=== PATIENT | female | born 1945 | race Caucasian/White ===

== ENCOUNTER 2022-02-21 18:22 | Inpatient (IN) | payer MEDICARE ==
[~2022-02-21] VITALS: Ht 152.4 cm; Wt 54.9 kg
--- NOTE | 2022-02-21 18:27 | NUR ---
APOLONIA CARTER TAKEN TO BED 10
[2022-02-21 18:36] VITALS: BP 142/88
--- NOTE | 2022-02-21 18:46 | NUR ---
BIBA FROM HOME C/O LOW BLOOD SUGAR, PER EMS BS ON SCENE LOW (BELOW 30), GCS30, GIVEN D10 AND NOW PT IS VERBALLY RESPONSIVE, ALERT AND AWAKE, GCS15. 2X EPISODE OF VOMITING. CHANGED INTO A GOWN AND PLACED ON THE PATIENT FINANCIAL SERVICES SPECIALIST. BS AT BEDSIDE 101, ERMD MADE AWARE. DENIES ANY ABD PAIN/DIARRHEA NKA PMH: MS, DM, HDL, HTN
[2022-02-21] MEDS ORDERED: ONDANSETRON 4 MG/2 ML VIAL IVP ONE (18:50)
[2022-02-21 18:58] LABS: BASOPHILS # (AUTO) 0.1 K/uL (0.00-0.22); BASOPHILS % (AUTO) 1.1 % (0.0-2.0); EOSINOPHILS # (AUTO) 0.1 K/uL (0-0.4); EOSINOPHILS % (AUTO) 1.2 % (0.0-4.0); HEMATOCRIT 34.8 % (36-48); HEMOGLOBIN 11.7 g/dL (12.0-16.0); LYMPHOCYTES # (AUTO) 2.2 K/uL (2.5-16.5); MEAN CORPUSCULAR HEMOGLOBIN 30 pg (27-31); MEAN CORPUSCULAR HGB CONC 34 g/dL (33-37); MEAN CORPUSCULAR VOLUME 89.4 fL (80-94); MONOCYTES # (AUTO) 0.6 K/uL (0.8-1.0); MONOCYTES % (AUTO) 7.5 % (1.7-9.3); NEUTROPHILS # (AUTO) 4.7 K/uL (1.8-7.7); NEUTROPHILS % (AUTO) 61.2 % (42.2-75.2); PLATELET COUNT (AUTO) 286 K/uL (140-450); WHITE BLOOD COUNT (AUTO) 7.7 K/uL (4.8-10.8)
--- NOTE | 2022-02-21 19:05 | NUR ---
GIVEN 2 APPLE JUICE BOXES PER ERMD, STATED TO RECHECK BLOOD SUGAR AFTER JUICE.
--- NOTE | 2022-02-21 19:18 | NUR ---
Pt report given to TOO BROWN. Transfer of care at this time.
[2022-02-21 19:21] LABS: ALBUMIN 3.3 g/dL (3.4-5.0); ANION GAP 14.5 (8-16); ASPARTATE AMINOTRANSFERASE 21 U/L (15-37); CARBON DIOXIDE 27.5 mmol/L (21-32); CHLORIDE 102 mmol/L (98-107); CREATININE 0.7 mg/dL (0.6-1.3); SODIUM SERUM 140 mmol/L (136-145); TOTAL BILIRUBIN 0.2 mg/dL (0.0-1.0); UREA NITROGEN, BLOOD 12 mg/dL (7-18)
[2022-02-21 19:29] LABS: GLUCOSE 25 mg/dL (74-106)
--- NOTE | 2022-02-21 20:00 | NUR ---
BS 49. ER NOTIFIED. 2 JUICES AND SANDWICH PROVIDED.
[2022-02-21] MEDS ORDERED: DEXTROSE 10% 250 ML IV SCH (20:05)
--- NOTE | 2022-02-21 20:12 | NUR ---
DAUGHTER KULDIP BENITEZ OR SON IN LAW [facility] [phone] OR [phone]
[2022-02-21 20:46] LABS: APPEARANCE,URINE CLEAR (CLEAR); BILIRUBIN,URINE NEGATIVE (NEGATIVE); BLOOD, URINE NEGATIVE (NEGATIVE); COLOR,URINE YELLOW (YELLOW); LEUKOCYTE ESTERASE ,URINE 1+ (NEGATIVE); NITRITE, URINE NEGATIVE (NEGATIVE); UGLUCOSE NEGATIVE (NEGATIVE)
[2022-02-21 20:51] LABS: RBC,URINE 0-5 /HPF (0-5)
[2022-02-21] MEDS ORDERED: ATOR40TA PO (20:54)
[2022-02-21] MEDS ORDERED: BEN10 PO (20:54)
[2022-02-21] MEDS ORDERED: PANT40EC PO (20:57)
[2022-02-21] MEDS ORDERED: CYCL-711 PO (20:57)
[2022-02-21] MEDS ORDERED: GLIM2TAB PO (20:57)
[2022-02-21] MEDS ORDERED: METF-346 PO (20:57)
[2022-02-21] MEDS ORDERED: DEXTROSE 10% 1,000 ML IV ONE (21:06)
--- NOTE | 2022-02-21 21:14 | NUR ---
D10 1L PULLED FROM ICU, NO 250 BAGS AVAILABLE
[2022-02-21] MEDS ORDERED: cefTRIAXone 1,000 MG VIAL ONE (21:17)
--- NOTE | 2022-02-21 22:25 | NUR ---
ER MADE AWARE OF CRITICAL LACTIC RESULT OF 5.8
[2022-02-21] MEDS ORDERED: ACETAMINOPHEN 325 MG TAB PO PRN (23:05)
[2022-02-21] MEDS ORDERED: ONDANSETRON 4 MG/2 ML VIAL IVP PRN (23:05)
[2022-02-21] MEDS: DEXT 5% / NACL 0.9% 500 ML IV SCH (23:26)
--- NOTE | 2022-02-22 03:30 | NUR ---
PT WAS ADMITTED TO [facility] DEPARTMENT FROM ER THRU [facility] WITH DX OF HYPOGLYCEMIA. PT IS AOX4, AMBULATORY, ABLE TO VERBALIZE NEEDS AND ABLE TO FOLLOW COMMANDS. PT IS ON ROOM AIR AND ON REGULAR DIET. PT HAS IV ON LEFT AC GAUGE 75 RUNNING WITH D5NS AT 75ML/HR. PT SKIN IS INTACT. PT WAS ORIENTED TO ROOM/HOSPITAL, BED BUTTONS AND CALL LIGHT. ALL SAFETY MEASURES IMPLEMENTED. BED IN LOW POSITION, BED WHEELS LOCKED AND CALL LIGHT WITHIN REACH.
--- NOTE | 2022-02-22 03:41 | NUR ---
Report given to receiving RN. Pt aware and agreeable to admission. Pt has all belongings. Pt transported via gurney.
[2022-02-22 04:00] VITALS: BP 146/81
--- NOTE | 2022-02-22 04:19 | NUR ---
NOTIFIED DR. GARCIA REGARDING PT'S BLOOD SUGAR OF 25 AND LATEST IS [address] GARCIA ORDER ACCUCHECK ACHS. ORDER WAS MADE AND CARRIED OUT.
[2022-02-22] MEDS: DEXT 5% / NACL 0.9% 500 ML IV SCH (05:45)
[2022-02-22] MEDS: PANTOPRAZOLE 40 MG TABEC PO SCH (06:06)
[2022-02-22 06:27] LABS: BASOPHILS # (AUTO) 0.1 K/uL (0.00-0.22); BASOPHILS % (AUTO) 1.2 % (0.0-2.0); EOSINOPHILS # (AUTO) 0.1 K/uL (0-0.4); EOSINOPHILS % (AUTO) 1.7 % (0.0-4.0); HEMATOCRIT 29.6 % (36-48); HEMOGLOBIN 10.3 g/dL (12.0-16.0); LYMPHOCYTES # (AUTO) 2.4 K/uL (2.5-16.5); LYMPHOCYTES % (AUTO) 41.6 % (20.5-51.1); MEAN CORPUSCULAR HEMOGLOBIN 31 pg (27-31); MEAN CORPUSCULAR HGB CONC 35 g/dL (33-37); MEAN CORPUSCULAR VOLUME 87.6 fL (80-94); MONOCYTES # (AUTO) 0.5 K/uL (0.8-1.0); MONOCYTES % (AUTO) 9.1 % (1.7-9.3); NEUTROPHILS # (AUTO) 2.7 K/uL (1.8-7.7); NEUTROPHILS % (AUTO) 46.4 % (42.2-75.2); PLATELET COUNT (AUTO) 258 K/uL (140-450); RED BLOOD CELL COUNT(AUTO) 3.37 MIL/uL (4.20-5.40); RED CELL DISTRIBUTION WIDTH 14.5 % (11.6-13.7); WHITE BLOOD COUNT (AUTO) 5.9 K/uL (4.8-10.8)
[2022-02-22 06:28] LABS: ALBUMIN 2.6 g/dL (3.4-5.0); ANION GAP 12.5 (8-16); ASPARTATE AMINOTRANSFERASE 16 U/L (15-37); CARBON DIOXIDE 27.6 mmol/L (21-32); CHLORIDE 104 mmol/L (98-107); CREATININE 0.6 mg/dL (0.6-1.3); GLUCOSE 65 mg/dL (74-106); MAGNESIUM 1.2 mg/dL (1.8-2.4); POTASSIUM 3.1 mmol/L (3.5-5.1); SODIUM SERUM 141 mmol/L (136-145); TOTAL BILIRUBIN 0.2 mg/dL (0.0-1.0); UREA NITROGEN, BLOOD 9 mg/dL (7-18)
[2022-02-22] MEDS: BLOOD GLUCOSE MONITORING 1 DEV DEV FS SCH ×4 (06:40→21:05)
--- NOTE | 2022-02-22 06:40 | NUR ---
PT'S BLOOD GLUCOSE IS 67. NO INSULIN COVERAGE NEEDED. ORANGE JUICE WAS ALSO GIVEN TO PT.
--- NOTE | 2022-02-22 06:50 | NUR ---
NOTIFIED DR. GARCIA REGARDING PT'S POTASSIUM LEVEL OF 3.1. WILL WAIT FOR THE MD'S REPLY/ORDER.
[2022-02-22] MEDS ORDERED: DEXT 5% /NACL 0.9% 1,000 ML IV SCH (07:00)
--- NOTE | 2022-02-22 07:49 | NUR ---
PT IS STABLE. ENDORSED PT TO MORNING SHIFT NURSE FOR CONTINUITY OF CARE.
--- NOTE | 2022-02-22 07:50 | NUR ---
RECEIVED PT FROM NIGHT RN, PT IS AWAKE, ALERT AND ORIENTED, ON ROOM AIR, IV LINE NOTED ON THE LEFT AC G. 18 WITH D5 NS INFUSING AT 75ML/HR, INTACT, NO SIGN OF DISTRESS NOTED AND WILL CONTINUE TO MONITOR PT.
--- NOTE | 2022-02-22 07:52 | NUR ---
PT'S BLOOD GLUCOSE WAS CHECKED NOW AND IS 100.
[2022-02-22 08:00] VITALS: BP 125/73
[2022-02-22] MEDS: ENOXAPARIN 40 MG/0.4 ML SYR SUBQ SCH ×2 (09:00→09:34)
[2022-02-22] MEDS: ATORVASTATIN 20 MG TAB PO SCH (09:31)
--- NOTE | 2022-02-22 10:44 | NUR ---
PATIENT HAS BEEN SCREENED AND CATEGORIZED MODERATE NUTRITION RISK. PATIENT WILL BE SEEN WITHIN 3-5 DAYS OF ADMISSION. 02/21/22-02/26/[address] REVIEWED BY V[address]IL N[address] RD
[2022-02-22 12:00] VITALS: BP 132/70
--- NOTE | 2022-02-22 12:12 | NUR ---
DR. TIDWELL MADE A VERBAL ORDER TO GIVE PT MAGNESIUM 2GM FOR MG LEVEL OF 1.2 AND POTASSIUM ORAL 40MEQ FOR POTASSIUM LEVEL OF 3.1, READ BACK AND VERIFIED.
--- NOTE | 2022-02-22 12:18 | NUR ---
DR. TIDWELL MADE A VERBAL ORDER TO CHECK PT'S BLOOD GLUCOSE EVERY 3HRS FOR 24HOURS.
[2022-02-22] MEDS ORDERED: POTASSIUM CHLORIDE 10 MEQ TABER PO SCH (13:00)
[2022-02-22] MEDS ORDERED: MAG SULF 2000 MG/WATER PREMIX 50 ML IV SCH (13:30)
--- NOTE | 2022-02-22 14:09 | NUR ---
PT WAS GIVEN MAGNESIUM 2GM AND 40 MEQ PO POTASSIUM NOW.
--- NOTE | 2022-02-22 14:39 | NUR ---
DC PLANNING SW MET WITH PT AT BEDSIDE TO COMPLETE ASSESSMENT. PATIENT REPORTS RESIDING IN A SINGLE STORY HOME WITH HER FAMILY. PATIENT IDENTIFIES RADHA BENITEZ, DONTE, AND AN BENITEZ, DIL, EMERGENCY CONTACTS. PATIENT DENIES HAVING AD IN PLACE AND ACCEPTED AD OFFERED BY SW. PATIENT REPORTS MEETING WITH HER PCP NEEDED, LAST VISIT; 1 MONTH AGO. PATIENT REPORTS A RECENT CHANGE IN PCP AND REPORTS DR. CHACON WILL BE HER NEW PCP. PATIENT REPORTS TAKING MEDICATION HOWEVER, RECENT CHANGES HAVE BEEN MADE AND NOW IS UNSURE WHAT SHOULD OR IS REQUIRED TO BE TAKEN. SW ENCOURAGED PT TO SPEAK WITH TO GET FURTHER CLARIFICATION, PATIENT AGREED. PATIENT REPORTS SHE WILL BE WORKING WITH HER PCP WELL TO GET FURTHER CLARIFICATION ON MEDICATION. PATIENT DENIES BARRIERS IN ACCESS TO MEDICATION AND REPORTS RECEIVING MEDICATION FROM [facility] IN [place], WHEN NEEDED. PATIENT REPORTS BEING AMBULATORY WITH DME ASSISTANCE; FWW & CANE. PATIENT REPORTS HX OF DIABETES AND REPORTS THAT SHE IS NOT NUTRITION COMPLIANT, SHE TYPICALLY DOES NOT HAVE AN APPETITE. PATIENT REPORTS RECENTLY LOSING 40 POUNDS. PATIENT REPORTS ADEQUATE FOOD SOURCE AT HOME, HOWEVER, HER APPETITE MAKES IT DIFFICULT TO MANAGE DIABETES.PT REPORTS HX OF HH; LAST DATE OF SERVICE 1 WEEK AGO. PATIENT REPORTS RECEIVING HOME HEALTH SERVICES FOR ONE MONTH; PT AND NURSE CARE, WHO PROVIDED SERVICES 2X WEEK. PATIENT UNABLE TO RECALL NAME OF AGENCY. HH SET UP WITH [facility]. PT REPORTS DC PLAN IS TO RETURN HOME WITH FAMILY PROVIDING TRANSPORTATION, WHEN MEDICALLY STABLE. SW INQUIRED ON RESOURCES NEEDED, PT DECLINED.
[2022-02-22 16:00] VITALS: BP 127/82
--- NOTE | 2022-02-22 16:00 | NUR ---
blood glucose check done now and is 94
--- NOTE | 2022-02-22 16:32 | NUR ---
P.T. NOTES P.T. EVAL COMPLETED; REFER TO EVAL FOR DETAILS.
--- NOTE | 2022-02-22 19:00 | NUR ---
BLOOD GLUCOSE CHECK DONE NOW AND IS 111.
--- NOTE | 2022-02-22 19:39 | NUR ---
ENDORSED PT TO NIGHT RN FOR CONTINUITY OF CARE, RN WAS REMINDED OF THE BLOOD GLUCOSE CHECK FOR PT EVERY 3H FOR 24HR AND RN VERBALIZED UNDERSTANDING.
--- NOTE | 2022-02-22 19:40 | NUR ---
RECEIVED REPORT FROM MORNING SHIFT NURSE. PT IS AOX4, AMBULATORY WITH ASSIST, ABLE TO VERBALIZE NEEDS AND ABLE TO FOLLOW COMMANDS. PT IS ON ROOM AIR AND ON CCHO. PT IS ON SALINE LOCK ON LEFT AC GAUGE 18. PT LATEST BLOOD GLUCOSE IS 111. NO COMPLAIN OF PAIN AT THIS TIME. NO S/S OF DISTRESS NOTED. ALL SAFETY MEASURES IMPLEMENTED. BED IN LOW POSITION, BED WHEELS ON LOCKED AND CALL LIGHT WITHIN REACH.
[2022-02-22 20:00] VITALS: BP 111/61
[2022-02-23] VITALS: BP 123/79
--- NOTE | 2022-02-23 | NUR ---
TOOK PT'S BLOOD GLUCOSE- 93 PER MD ORDER. ALL SAFETY MEASURES IMPLEMENTED. BED IN LOW POSITION, BED WHEELS ON LOCKED AND CALL LIGHT WITHIN REACH.
--- NOTE | 2022-02-23 02:08 | NUR ---
PT IS ON SLEEP. CHEST RISE AND FALL SYMMETRICALLY NOTED. RESPIRATION IS EVEN AND UNLABORED. ALL SAFETY MEASURES IMPLEMENTED. BED IN LOW POSITION, BED WHEELS ON LOCKED AND CALL LIGHT WITHIN REACH.
--- NOTE | 2022-02-23 03:08 | NUR ---
TOOK PT'S BLOOD GLUCOSE STILL 93. ALL SAFETY MEASURES IMPLEMENTED. BED IN LOW POSITION, BED WHEELS ON LOCKED AND CALL LIGHT WITHIN REACH.
[2022-02-23 04:00] VITALS: BP 122/77
--- NOTE | 2022-02-23 04:00 | NUR ---
CHECKED THE PT, STILL ON SLEEP. CHEST RISE AND FALL SYMMETRICALLY NOTED. RESPIRATION IS EVEN AND UNLABORED. ALL SAFETY MEASURES IMPLEMENTED. BED IN LOW POSITION, BED WHEELS ON LOCKED AND CALL LIGHT WITHIN REACH.
[2022-02-23] MEDS: PANTOPRAZOLE 40 MG TABEC PO SCH (06:05)
[2022-02-23] MEDS: BLOOD GLUCOSE MONITORING 1 DEV DEV FS SCH ×3 (06:46→16:42)
--- NOTE | 2022-02-23 06:47 | NUR ---
PT BLOOD GLUCOSE IS 86. ALL SAFETY MEASURES IMPLEMENTED. BED IN LOW POSITION, BED WHEELS ON LOCKED AND CALL LIGHT WITHIN REACH.
--- NOTE | 2022-02-23 07:22 | NUR ---
PT IS STABLE. ENDORSED PT TO MORNING SHIFT NURSE FOR CONTINUITY OF CARE.
--- NOTE | 2022-02-23 07:30 | NUR ---
RECEIVED REPORT FROM NIGHTSHIFT NURSE. PT A/O X4. ABLE TO MAKE NEEDS KNOWN. NO SOB OR RESPIRATORY DISTRESS. NO S/S OF HYPOGLYCEMIA. DENIES PAIN. DENIES DIZZINESS. [facility], [facility]. SKIN INTACT. NEEDS ALL MET AT THIS TIME. ALL SAFETY MEASURES IN PLACE.
[2022-02-23 08:00] VITALS: BP 137/79
[2022-02-23] MEDS: ENOXAPARIN 40 MG/0.4 ML SYR SUBQ SCH (09:32)
[2022-02-23] MEDS: ATORVASTATIN 20 MG TAB PO SCH (09:32)
[2022-02-23 12:00] VITALS: BP 133/72
[2022-02-23 14:56] VITALS: BP 133/72
--- NOTE | 2022-02-23 16:42 | NUR ---
BLOOD GLUCOSE = 98
--- NOTE | 2022-02-23 17:30 | NUR ---
DISCHARGE INSTRUCTIONS GIVEN. PT VERBALIZED UNDERSTANDING. LEFT AC IV DISCONTINUED, CATHETER INTACT, NO ACTIVE BLEEDING. PT WHEELED OUT BY JAMI.
== END 2022-02-23 17:25 | disposition home or self-care (01) | DRG 638 ==
LOC: MED 18:22 → MTU 23:12 → OBSVTOIN 02-22 12:30
PROVIDERS: ADMIT Hospitalist; ATTEND Hospitalist
DX: E11.649 Type 2 diabetes mellitus with hypoglycemia without coma (principal); N39.0 Urinary tract infection, site not specified; R65.10 Systemic inflammatory response syndrome (SIRS) of non-infectious origin without acute organ dysfunction; G35 Multiple sclerosis; E78.5 Hyperlipidemia, unspecified; Z20.822 Contact with and (suspected) exposure to COVID-19; T38.3X5A Adverse effect of insulin and oral hypoglycemic [antidiabetic] drugs, initial encounter; Y92.89 Other specified places as the place of occurrence of the external cause
CPT/HCPCS: 96365; 96375; 99291; G0378; 36415; 80053; 81001; 82948; 83605; 83735; 84484; 85025; 87040; 87081; 87086; 93005; 97112; 97116; J0696; J1650; J2405; J3475